=== PATIENT | female | born 1955 | race Hispanic/Latino ===

== ENCOUNTER → 2019-08-18 | Day surgery (SDC) | payer OTHER ==
[~2019-08-18] MED LIST: CEFAZOLIN SOD 1 GM/NS 50ML 50 ML IV ONE; DEXAMETHASONE SOD PHOS INJ 4 MG/ML VIAL ONE; EPHEDRINE SULFATE INJ 50 MG/10 ML SYR ONE; FENTANYL CITRATE/PF 100MCG/2 ML INJ ONE; FOLIC ACID PO; KETOROLAC TROMETHAMINE 30 MG/ML VIAL ONE; LIDOCAINE HCL 2% LOCAL INJ 5 ML SDV VIAL INJ ONE; LIPITOR20 MG PO; LORAZEPAM PO; MIDAZOLAM HCL 2 MG/2 ML VIAL ONE; NIACIN PO; OMEGA 3 FISH OIL PO; ONDANSETRON HCL INJ 2MG/ML 2ML 2 MG/ML VIAL ONE; PANTOPRAZOLE SO40 MG PO; PAROXETINE HCL20 MG PO; PROPOFOL IV EMULSION 10 MG/ML 20 ML VIAL ONE; SEVOFLURANE INHAL SOLN 250 ML PEN BTL ONE; VIT B-12 PO; VITAMIN D3 PO
--- OUTSIDE RECORDS SUMMARY | 2019-08-18 05:22 | XMS REPORT ---
Author Author [facility] Address Unknown Phone Unavailable Care Team Providers Care Sample Grader Name Role Phone Unavailable Unavailable Problems This patient has no known problems. Allergies, Adverse Reactions, Alerts This patient has no known allergies or adverse reactions. Medications This patient has no known medications. Results Test Description Test Time Test Comments Text Results Atomic Results Result Comments BREAST ULTRASOUND BILATERAL 2019-07-01 15:45:58 - BREAST ULTRASOUND BILATERALULTRASOUND OF BOTH BREASTS AND BOTH AXILLA: 07/01/2019CLINICAL: Dense breast. Comparison is made to exams dated 07/01/2019 mammogram, 07/01/2018 ultrasound, and 06/11/2017 ultrasound - [facility]-. Real-time ultrasound of both breasts and both axilla was performed. No abnormalities were seen sonographically in either breast or either axilla. IMPRESSION: NEGATIVE There is no sonographic evidence of malignancy. Resume annual screening mammography in one year. Fernando Prabhakar M.D. rb/:07/01/2019 15:45:58 Entry: - 07/02/2019 16:35:25Imaging Technologist: YODIT STARKS, [facility]-letter sent: BIRADS 1-2 Combo FU Letter Ultrasound BI-RADS: 1 Negative SCR MAMM BILATERAL LONNIE CAD DIGITAL 2019-07-01 15:02:43 - SCR MAMM BILATERAL LONNIE CAD DIGITALBILATERAL DIGITAL SCREENING MAMMOGRAM 3D/2D WITH CAD: 07/01/2019CLINICAL: Asymptomatic. Digital breast tomosynthesis was performed in addition to routine CC and MLO views. Current mammographic images were evaluated by either a [employer] M-Vu or a [employer] ImageChecker CAD (computer aided detection system). Comparison is made to exams dated 07/01/2018 mammogram, 06/11 mammogram, and 10/16/2016 mammogram - [facility]-. The tissue of both breasts is heterogeneously dense. This may lower the sensitivity of mammography. There is a biopsy clip in the right breast. No suspicious new mass, architectural distortion, malignant type calcification, or lymph node abnormality detected. Breast architecture is stable compared to prior exams.IMPRESSION: INCOMPLETE: ADDITIONAL IMAGING EVALUATION NEEDEDThere is no mammographic evidence of malignancy. Resume annual screening mammography in one year. Scheduled bilateral breast ultrasound to follow.Fernando Prabhakar M.D. rb/:07/01/2019 15:02:43 Entry: - 07/02/2019 16:35:03Imaging Technologist: Monica STARKS, [facility]-FWMammogram BI-RADS: 0 Incomplete: Additional Imaging Evaluation Needed
[2019-08-18 09:00] VITALS: BP 122/61
--- NOTE | 2019-08-18 11:13 | Operative Report ---
DATE OF PROCEDURE: 08/18/2019 SURGEON: Juni Villeda MD APPEALS REFEREE: Albert Brock, certified PA. PREOPERATIVE DIAGNOSIS: Right carpal tunnel syndrome. POSTOPERATIVE DIAGNOSIS: Right carpal tunnel syndrome. PROCEDURE: Right endoscopic carpal tunnel release. INDICATIONS: The patient is a 64-year-old female with clinic signs and symptoms consistent with severe right carpal tunnel syndrome. She has failed conservative management and would like to proceed with an endoscopic versus open carpal tunnel release. The risks and benefits of the surgery have been discussed. She states she understands and wishes to proceed. PROCEDURE IN DETAIL: The patient was brought to the operating room and placed under general anesthetic. Her right upper extremity was prepped and draped in a sterile manner. A preoperative time-out was performed. The extremity was exsanguinated and a proximal tourniquet was inflated to 250 mmHg. An incision was made over the flexion crease of the right wrist. She did not have a palmaris longus tendon. The flexor retinaculum was elevated and incised. An elevator was used to tease the tenosynovium off the undersurface of the transverse carpal ligament. Dilators were placed and the hook of the hamate was palpated. The [employer] endoscope was then placed into the carpal tunnel. The undersurface of the ligament was cleanly visualized without evidence of soft tissue interposition. The knife was deployed and the ligament was cut from distal to proximal. A full-thickness cut was noted. The proximal retinaculum was incised under direct visualization. The incision was closed with two interrupted nylon stitches. A sterile bandage was applied. The patient was extubated and transported to the recovery room in stable condition. There was no blood loss and all needle and sponge counts were correct. Juni Villeda MD DR/YOSELIN /[id number]
== END | disposition home or self-care (01) ==
LOC: OR 05:12
PROVIDERS: ATTEND Specialist
DX: G56.01 Carpal tunnel syndrome, right upper limb (principal); E78.5 Hyperlipidemia, unspecified; K21.9 Gastro-esophageal reflux disease without esophagitis; F41.9 Anxiety disorder, unspecified; Z01.810 Encounter for preprocedural cardiovascular examination; Z68.30 Body mass index [BMI] 30.0-30.9, adult
CPT/HCPCS: 29848; 93005; J0690; J1100; J1885; J2001; J2250; J2405; J2704; J3010

== ENCOUNTER → 2021-03-21 | Day surgery (SDC) | payer OTHER ==
[~2021-03-21] MED LIST changes: -CEFAZOLIN SOD 1 GM/NS 50ML 50 ML IV ONE; -EPHEDRINE SULFATE INJ 50 MG/10 ML SYR ONE; -FENTANYL CITRATE/PF 100MCG/2 ML INJ ONE; -MIDAZOLAM HCL 2 MG/2 ML VIAL ONE; +POVIDONE IODINE 0.05% 0.05 % ML PO ONE; +SODIUM CHLORIDE 0.9% 50ML 50 ML ONE
[2021-03-21 09:45] VITALS: BP 119/64
== END | disposition home or self-care (01) ==
LOC: OR 07:30
PROVIDERS: ATTEND Specialist
DX: S83.241A Other tear of medial meniscus, current injury, right knee, initial encounter (principal); M65.9 Synovitis and tenosynovitis, unspecified; E78.5 Hyperlipidemia, unspecified; F32.9 Major depressive disorder, single episode, unspecified; X58.XXXA Exposure to other specified factors, initial encounter; Z01.810 Encounter for preprocedural cardiovascular examination
CPT/HCPCS: 29881; 93005; J0690; J1100; J1885; J2001; J2405; J2704